=== PATIENT | male | born 1970 | race Caucasian/White ===

== ENCOUNTER 2018-04-07 10:21 | Emergency (ER) | payer OTHER ==
--- OUTSIDE RECORDS SUMMARY | 2018-04-07 10:42 | XMS REPORT | Continuity of Care Document ---
:1970 External Reference #:[id number] Author Name Kimberly Stoddard Care Team Providers Name Role Phone Joseph Jean Baptiste MD Primary Care Physician Unavailable Payers Type Date Identification Numbers Payment Provider Subscriber Policy Number: [id number] [employer] Vince Mina PayID: [id number] [address] [place] [address] Onset: 2009 Policy Number: Aman Mina [id number] Group Name: wrist [address] PayID: ELIAZAR Marques [phone] Onset: 2011 Policy Number: Aman Mina [id number] Group Name: shoulder [address] PayID: ELIAZAR Marques [id number] Advance Directives Description No Information Available Problems Description No Information Family History Date Family Member(s) Problem(s) Comments General Diabetes General Heart Disease General Cancer Social History Type Date Description Comments Sex Unknown Marital Status Lives With Girlfriend Occupation Patient Transport Orderly ETOH Use Consumes 3 beers per day Tobacco Use Start: Unknown Patient has never smoked Recreational Drug Use Denies Drug Use Smoking Status Reviewed: 03/18/18 Patient has never smoked Exercise Type/Frequency Exercises regularly Allergies, Adverse Reactions, Alerts Date Description Reaction Status Severity Comments 06/08/2013 Penicillins Active Medications Medication Date Status Form Strength Qnty SIG Indications Ordering Provider Viagra / Active Tablets 100mg by mouth 0.5 Unknown 0000 or 1 tab 1h before intercourse Proair HFA / Active Aerosol 108(90Base 2 puffs by Unknown 0000 ) mcg/Act mouth every 4 hours as needed Metformin 00/ Active Tablets ER 500mg 1-2 tabs by Unknown HCL ER (Osm) 0000 24HR mouth every day Triamterene/ / Active Tablets 37.5-25mg 1 by mouth Unknown Hydrochlorot 0000 every day hiazide Advair / Active Aerosol 250-50mcg/ 1 puff by Unknown Diskus 0000 Dose mouth twice a day Omeprazole / Hx Capsules 20mg 1 by mouth Unknown 0000 [address] every day Hydrocodone- / Hx Tablets 5-325mg 1 or 2 tabs Unknown Acetaminophe 0000 by mouth n every 6-8 hours as needed for pain Immunizations Description No Information Available Vital Signs Date Vital Result Comment 03/18/2018 1:10pm Heart Rate 84 /min BP Systolic 148 mmHg BP Diastolic 90 mmHg Respiratory Rate 18 /min Body Temperature 97.8 F 02/08/2018 9:18am Height 68 inches 5'8" Weight 234.00 lb Heart Rate 72 /min BP Systolic 140 mmHg BP Diastolic 90 mmHg Respiratory Rate 18 /min Body Temperature 97.5 F BMI (Body Mass Index) 35.6 kg/m2 08/09/2010 8:59am Height 68 inches 5'8" Weight 275.00 lb Heart Rate 92 /min BP Systolic 152 mmHg BP Diastolic 98 mmHg BMI (Body Mass Index) 41.8 kg/m2 06/10/2010 2:38pm Height 68 inches 5'8" Weight 280.00 lb Heart Rate 94 /min BP Systolic 149 mmHg BP Diastolic 94 mmHg BMI (Body Mass Index) 42.6 kg/m2 Results Description No Information Available Procedures Date Code Description Status 03/18/2018 57428 Excise Benign lesion 1.1-2CM Trunk/Arm/Leg Completed 08/29/2010 70560 Carpal Tunnel Release Completed 08/29/2010 64085 Carpal Tunnel Release Completed 07/10/2010 95030 Carpal Tunnel Release Completed 07/10/2010 05581 Carpal Tunnel Release Completed Encounters Type Date Location Provider Dx Diagnosis Office Visit 02/08/2018 [facility] Quinn Rea, L72.3 Sebaceous cyst 9:15a Of Gretta LYNNE, FACS Office Visit 06/25/2011 [facility] Blair Manzo M.D. 840.9 Sprains & Strains 4:15p Of C.M.A. Shoulder & Upper Arm Unspec Office Visit 06/20/2011 [facility] Manzo M.D. 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
--- OUTSIDE RECORDS SUMMARY | 2018-04-07 10:42 | XMS REPORT | Continuity of Care Document ---
:1970 External Reference #:[id number] Author Name Kimberly Stoddard Care Team Providers Name Role Phone Joseph Jean Baptiste MD Primary Care Physician Unavailable Payers Type Date Identification Numbers Payment Provider Subscriber Policy Number: [id number] [employer] Vince Campbell PayID: [id number] [address] [place] [address] Onset: 2009 Policy Number: Aman Campbell [id number] Group Name: wrist [address] PayID: ELIAZAR Marques [phone] Onset: 2011 Policy Number: Aman Campbell [id number] Group Name: shoulder [address] PayID: ELIAZAR Marques [phone] Advance Directives Description No Information Available Problems Description No Information Family History Date Family Member(s) Problem(s) Comments General Diabetes General Heart Disease General Cancer Social History Type Date Description Comments Sex Unknown Marital Status Lives With Girlfriend Occupation Director Of Events ETOH Use Consumes 3 beers per day Tobacco Use Start: Unknown Patient has never smoked Recreational Drug Use Denies Drug Use Smoking Status Reviewed: 03/29/18 Patient has never smoked Exercise Type/Frequency Exercises [...] Available Vital Signs Date Vital Result Comment 03/29/2018 2:01pm Heart Rate 76 /min Respiratory Rate 18 /min Body Temperature 98.0 F 03/18/2018 1:10pm Heart Rate 84 /min BP [...] BMI (Body Mass Index) 42.6 kg/m2 Results Test Date Facility Test Result H/L Range Note Laboratory test 03/18/2018 [facility] Surgical SEE RESULT [address] [place] [address] [phone] 1 SEE RESULT BELOW Name: VINCE CAMPBELL : [address]: Quinn Rea MD Acct: [id number] Unit: [id number] AGE: 47 Location: [facility] Re03/18/18 SEX: M Status: REG REF SPEC: [id number] DORIAN: 03/18/18-[address]: Quinn Rea MD REQ: [id number] RECD: 03/18/18-1712 STATUS: SOUT _ ORDERED: LEVEL 3 COMMENTS: [id number] FINAL DIAGNOSIS Skin, back, excision: -- Follicular cyst, infundibular type. CLINICAL HISTORY History of melanoma, excised in 1999 PRE-OPERATIVE DIAGNOSIS Suture ying 12:00 GROSS DESCRIPTION The specimen is received in formalin labeled, Back Cyst, and consists of a 2.0 x 1.6 x 0.9 cm yellow white irregular focally disrupted rubbery portion of subcutaneous soft tissue partially surfaced by a 1.6 x 0.5 cm patchy dawson-white skin ellipse. There is an attached suture which as per the accompanying requisition designates 12:00. Sectioning reveals a previously disrupted unilocular cyst measuring up to 0.9 cm. The specimen is inked as follows: 9:00 half black, 3:00 half blue and 12:00 tip green, serially sectioned from 12:00 to 6:00 and entirely submitted in cassettes A through C to include ellipse ends in cassette A. Signed by and Reported on: Anju Huerta MD 03/22/18 1339 END OF REPORT DEPARTMENT OF PATHOLOGY, [address] [place] [address] Arnold Ramos M.[address] Director [facility] # [id number] Procedures Date Code Description Status 03/18/2018 87688 Excise Benign lesion 1.1-2CM Trunk/Arm/Leg Completed 08/29/2010 37791 Carpal Tunnel Release Completed 08/29/2010 35403 Carpal Tunnel Release Completed 07/10/2010 49994 Carpal Tunnel Release Completed 07/10/2010 32406 Carpal Tunnel Release Completed Encounters Type Date Location Provider Dx Diagnosis Office Visit 02/08/2018 [facility] Quinn Rea, L72.3 Sebaceous cyst 9:15a Of Gretta LYNNE, FACS Office Visit 06/25/2011 [facility] Blair Manzo M.D. 840.9 Sprains & Strains 4:15p Of C.M.A. Shoulder & Upper Arm Unspec Office Visit 06/20/2011 [facility] Blair Manzo M.D. 726.10 Bursae & Tendon 2:30p Of C.M.A. Disorders Shoulder Region Unspec 726.10 Bursae & Tendon Disorders Shoulder Region Unspec Office Visit 06/10/2010 2:15p [facility] 354.0 Carpal Tunnel Services Of Ana Phillips Syndrome C.M.A. Plan of Treatment 03/29/2018 - Vince Tong, PAL72.9 Follicular cyst of the skin and subcutaneous tissue, [id number] Encounter for removal of suturesFollow up:As needed
[2018-04-07] MEDS ORDERED: Ibuprofen TAB* 800 MG PO ONE (11:38)
--- NOTE | 2018-04-07 12:45 | ED ---
Upper Extremity Pain - HPI Summary HPI Summary: Pt presents w/ Rt neck, shoulder pain since shoveling yesterday. Associated sx of Rt forearm tingling. Denies numbness, weakness. Pain worse w/ shoulder movements. Tried ice last night which helped - tried acetaminophen this morning w/o relief. Has not taken NSAID's but reports he's allowed to take these intermittently. H/o Rt shoulder pain/injury requiring PT last year - improved - does not recall dx. No known cervical issue. - History of Current Complaint Chief Complaint: EDExtremityUpper Stated Complaint: RIGHT SHOULDER INJURY Time Seen by Provider: 04/07/18 11:06 Hx Obtained From: Patient - Allergies/Home Medications Allergies/Adverse Reactions: Allergies Allergy/AdvReac Type Severity Reaction Status Date / Time Penicillins Allergy Swelling Verified 04/07/18 10:26 PMH/Surg Hx/FS Hx/Imm Hx Previously Healthy: Yes Endocrine/Hematology History: Denies: Hx Anticoagulant Therapy, Hx Blood Disorders, Autoimmune Disease Cardiovascular History: Denies: Hx Pacemaker/ICD Musculoskeletal History: Reports: Hx Back Problems - L5 disc herniation, , Other Musculoskeletal History - Neck strain approx 2010 Sensory History: Denies: Hx Hearing Aid Neurological History: Denies: Hx Headaches, Other Neuro Impairments/Disorders Psychiatric History: Denies: Hx Panic Disorder - Cancer History Cancer Type, Location and Year: SKIN CA - MELANOMA - Surgical History Surgery Procedure, Year, and Place: BIOPSIES AND SKIN CANCER REMOVAL 1999; Infectious Disease History: No Infectious Disease History: Denies: Traveled Outside the [place] in Last 30 Days - Social History Occupation: Employed Full-time - [employer] Alcohol Use: Weekly Substance Use Type: Reports: None Hx Tobacco Use: No Smoking Status (MU): Never Smoked Tobacco Review of Systems Constitutional: Negative Negative: Fever, Chills, Fatigue Positive: no symptoms reported Positive: Arthralgia Skin: Negative Positive: Paresthesia. Negative: Headache, Weakness, Numbness Psychological: Normal All Other Systems Reviewed And Are Negative: Yes Physical Exam Triage Information Reviewed: Yes Vital Signs On Initial Exam: Initial Vitals Temp Pulse Resp BP Pulse Ox 97.4 F 82 19 173/116 99 04/07/18 10:24 04/07/18 10:24 04/07/18 10:24 04/07/18 10:24 04/07/18 10:24 Vital Signs Reviewed: Yes Appearance: Positive: Well-Appearing, Pain Distress - mild, Obese Skin: Positive: Warm, Skin Color Reflects Adequate Perfusion, Dry - erythema, no ecchymosis, no lesions over affected area Head/Face: Positive: Normal Head/Face Inspection Eyes: Positive: EOMI ENT: Positive: Hearing grossly normal Respiratory/Lung Sounds: Positive: Breath Sounds Present Cardiovascular: Positive: Normal, Pulses are Symmetrical in both Upper and Lower Extremities Musculoskeletal: Positive: Strength/ROM Intact, Pain @ - Rt extensor tendons ( proximal) TTP Rt cervical mm and trap hypertonic Pain w/ all shoulder ROM but no restriction or weakness - sensation intact Neurological: Positive: Normal, Sensory/Motor Intact, Alert, Oriented to Person Place, Time, CN Intact II-III Psychiatric: Positive: Normal Diagnostics - Vital Signs Vital Signs Temp Pulse Resp BP Pulse Ox 04/07/18 10:24 97.4 F 82 19 173/116 99 - Laboratory Lab Statement: Any lab studies that have been ordered have been reviewed, and results considered in the medical decision making process. Course/Dx - Course Course Of Treatment: XR's shoulder: OA glenohumeral joint and AC joint - no fx, no dislocation, no effusion. XR cervical spine: straightening of lordosis, DDD. Straightening of cervical lordosis could be chroniuc from poor posture or acute from muscle spasm - provided NSAID and will send muscle relaxer to pharmacy - Diagnoses Provider Diagnoses: Degenerative disc disease, cervical, Osteoarthritis, shoulder, Muscle spasm Discharge - Sign-Out/Discharge Documenting (check all that apply): Patient Departure - Discharge Plan Condition: Stable Disposition: HOME Prescriptions: Cyclobenzaprine TAB* [Flexeril 10 MG TAB*] 10 mg PO TID PRN #15 tab PRN Reason: Pain Patient Education Materials: Cervical Radiculopathy (ED), Shoulder Pain (ED), Arthritis (ED) Forms: *Work Release Referrals: Joseph Jean Baptiste MD [Primary Care Provider] - Additional Instructions: REST, ICE. GENTLE STRETCHES TO PREVENT STIFFNESS/FROZEN SHOULDER You may take ibuprofen with food alternating with extra strength acetaminophen as needed for pain - a muscle relaxer has also been sent to your pharmacy in the event stretching and massage do not improve symptoms. Call PCP today to schedule follow-up. *If you develop numbness, weakness, swelling or skin discoloration, return to ED - Billing Disposition and Condition Condition: STABLE Disposition: Home
[2018-04-07 12:53] VITALS: BP 142/95
== END 2018-04-07 12:53 | disposition home or self-care (01) ==
LOC: ED 10:21
DX: M50.30 Other cervical disc degeneration, unspecified cervical region (principal); M19.011 Primary osteoarthritis, right shoulder; X50.9XXA Other and unspecified overexertion or strenuous movements or postures, initial encounter; Y93.H1 Activity, digging, shoveling and raking; Y92.9 Unspecified place or not applicable; Z88.0 Allergy status to penicillin; Z85.828 Personal history of other malignant neoplasm of skin; M62.838 Other muscle spasm
CPT/HCPCS: 72040; 99282; A9270-GY